=== PATIENT | male | born 1970 | race Caucasian/White ===

== ENCOUNTER 2019-01-18 12:48 | Emergency (ER) | payer OTHER ==
[2019-01-18 13:09] VITALS: BP 169/79
--- NOTE | 2019-01-18 13:57 | ED Physician Documentation ---
General Adult - HISTORIAN Historian: patient - HPI Stated Complaint: Right middle finger lac Chief Complaint: General Adult Onset: minutes Timing: still present Severity: mild Further Comments: yes (Pt is a 48 yo male with a laceration at the base of his R middle finger. Pt was reaching under a bed into a box that had a sharp object inside. Tetanus is not utd.) - ROS CONST: no problems EYES/ENT: none CVS/RESP: none GI/: none MS/SKIN/LYMPH: other (laceration base of R middle finger) - PAST HX Past History: other (DM, HLD, HTN) Allergies/Adverse Reactions: Allergies Allergy/AdvReac Type Severity Reaction Status Date / Time No Known Allergies Allergy Verified 01/18/19 13:07 Home Medications: Ambulatory Orders Medication Instructions Recorded Unobtainable 01/18/19 - SOCIAL HX Smoking History: non-smoker - FAMILY HX Family History: No - VITAL SIGNS Vital Signs: Vital Signs Temp Pulse Resp BP Pulse Ox 97.3 F L 63 19 169/79 96 01/18/19 13:03 01/18/19 13:03 01/18/19 13:03 01/18/19 13:03 01/18/19 13:03 - REVIEWED ASSESSMENTS Nursing Assessment Reviewed: Yes Vitals Reviewed: Yes Procedures Wound Location: upper extremity (base of R middle finger) Wound Length: 1.5 cm Wound's Depth, Shape: superficial Wound Explored: clean Irrigated w/ Saline (ccs): 20 Betadine Prep?: No (Hibiclens prep) Anesthesia: 1% Lidocaine Volume of Anesthetic: 2 cc Wound Debrided: minimal Wound Repaired With: sutures Suture Size/Type: 4:0, nylon Number of Sutures: 3 Sterile Dressing Applied?: Yes Progress - Progress Progress: TDap 0.5 ml IM Triple Abx to sutured area. Topical abx bid x 5 days. f/u pcp for suture removal in 5-7 days. ED Results Lab/Radiology - Orders Orders: ED Orders Category Date Time Status Diph,Pertuss(Acell),Tet Vac/Pf [Adacel] Med 01/18/19 13:55 Once 0.5 ml IM .ONCE ONE Lidocaine 1% 5ml [Xylocaine] Med 01/18/19 13:55 Once 50 mg IM NOW ONE General Adult Physical Exam - PHYSICAL EXAM GENERAL APPEARANCE: no distress NECK: normal inspection, supple RESPIRATORY: no resp distress, chest non-tender, breath sounds normal CVS: reg rate & rhythm, heart sounds normal BACK: normal inspection SKIN: other (1 cm laceation at base of R middle finger) EXTREMITIES: non-tender, normal range of motion NEURO: oriented X3, motor nml, sensation nml Discharge Clincal Impression: finger laceration Referrals: Primary Doctor,No [Primary Care Provider] - Condition: Good Disposition: 01 HOME, SELF-CARE Decision to Admit: NO Decision Time: 14:29
[2019-01-18] MEDS: Lidocaine 1% 5ml 10 MG/ML VIAL IM ONE (14:23)
[2019-01-18] MEDS: DIPH,PERTUSS(ACELL),TET VAC/PF 0.5 ML DISP.SYRIN IM ONE ×2 (15:02→15:03)
== END 2019-01-18 15:05 | disposition home or self-care (01) ==
LOC: ED 12:48
DX: S61.212A Laceration without foreign body of right middle finger without damage to nail, initial encounter (principal); W26.8XXA Contact with other sharp object(s), not elsewhere classified, initial encounter
CPT/HCPCS: 12001; 90715; 99282; 99283